=== PATIENT | male | born 1965 | race Caucasian/White ===

== ENCOUNTER → 2020-02-28 12:04 | Outpatient (CLI) | payer OTHER, SELFPAY ==
--- NOTE | ~2020-02-28 | MR_ITS ---
EXAMINATION: MR lumbar spine wo con DATE: 02/28/2020 12:55 INDICATION: Lumbar radiculopathy with low back pain and bilateral leg pain along with progressive dif ficulty walking. TECHNIQUE: Magnetic resonance imaging (MRI) of the lumbar spine was performed without intravenous con trast. Sequences included sagittal T2-weighted FSE, sagittal T2-weighted FS FSE, sagittal T1-weighted FSE, and axial T2-weighted FSE. COMPARISON: None FINDINGS: 10 degree lumbar levoscoliosis measured between L2 and L5. 1-2 mm anterolisthesis L4 on L5. 4 mm retr olisthesis L5 on S1. Schmorl's node along the superior endplate of T11. Additional Schmorl's node sandra ng the inferior endplate of L5. Chronic appearing mild anterior wedging at T11 and T12. Severe disc h eight loss with fibrovascular degenerative endplate changes at L4-L5 and L5-S1. Mild disc height loss at T10-T11 through T12-L1. No pathologic marrow replacing process. Epidural lipomatosis in the lower lumbar spine. The conus medullaris terminates at L2-L3. There is normal signal in the caudal spinal cord. Paravertebral soft tissues are unremarkable. The following disc levels are specifically discuss ed: T12-L1: Disc is mildly bulging. There is mild right and moderate left facet joint osteoarthritis. The re is mild left neural foraminal stenosis. There is mild central canal stenosis. L1-L2: The disc does not extend beyond the endplate margin. There is mild right and minimal left face t joint osteoarthritis. There is no neural foraminal stenosis. There is no central canal stenosis. L2-L3: Disc is mildly bulging. There is moderate bilateral facet joint osteoarthritis. There is mild bilateral neural foraminal stenosis. There is mild central canal stenosis. L3-L4: Disc is mildly bulging. There is mild left and severe right facet joint osteoarthritis. There is mild to moderate bilateral neural foraminal stenosis. There is mild to moderate central canal sten osis due in part to epidural lipomatosis. L4-L5: Annular fissure and broad-based disc extrusion extending from foraminal zone to foraminal zone with disc material extending a few millimeters cephalad and caudal to the level of the endplates. Th ere is hypertrophy of the ligamentum flavum. There is severe bilateral facet joint osteoarthritis. Th ere is moderate left and moderate to severe right neural foraminal stenosis. There is severe central canal stenosis. L5-S1: Annular fissure with broad-based disc extrusion extending from foraminal zone to foraminal zon e with disc material extending a few millimeters caudal to the level of the superior endplate of S1. There is moderate left and mild to moderate right facet joint osteoarthritis. There is mild right and moderate to severe left neural foraminal stenosis. There is moderate to severe central canal stenosi s due primarily to epidural lipomatosis. IMPRESSION: 1. Severe spondylosis along with epidural lipomatosis, both with lower lumbar predominance. Reviewed, dictated and finalized at location A. IMPRESSION: 1. Severe spondylosis along with epidural lipomatosis, both with lower lumbar p redominance.
== END ==
DX: M47.26 Other spondylosis with radiculopathy, lumbar region (principal)
CPT/HCPCS: 72148